=== PATIENT | female | born 1985 | race Caucasian/White ===

== ENCOUNTER → 2019-09-16 | Outpatient (CLI) | payer OTHER ==
[~2019-09-16] MED LIST: AZIT250 PO; Amoxicillin500 MG PO; Amoxicillin875 MG PO; BENZ100A PO; BUTASPCAF PO; CEPH250A PO; CEPH500 PO; CIPR500 PO; Excedrin Extra1 EACH PO; GENT.3OPSA OU; HYDACE5 PO; HYDCHL25 PO; HYDMOR2 PO; HYDROCHLOROTHIAZIDE; Hydrochlorothia50 MG PO; IBUP600; IBUP600 PO; IBUP800 PO; Inderal80 MG PO; KETO10 PO; Keflex500 MG PO; LABE100 PO; MULVITMINE PO; NAPR220 PO; NAPR500 PO; OXYACE5T PO; OXYC5 PO; PENVK500 PO; POTA8; PROM25 PO; PROP80ER PO; Percocet 5-3251 EACH PO; RXHYDACE PO; RXHYDMOR2 PO; RXPROM25 PO; SPIHYD; TAMS.4ER PO; Verotin-Gr Cap1 EACH PO; Zofran Odt4 MG PO; Zofran Odt4 MG SL
== END | disposition home or self-care (01) ==
LOC: LAB 18:55 → LAB SHORT 18:55
DX: R30.9 Painful micturition, unspecified (principal)
CPT/HCPCS: 87077; 87086; 87186

== ENCOUNTER 2023-01-30 01:42 | Emergency (ER) | payer OTHER ==
[~2023-01-30] VITALS: Ht 172.7 cm; Wt 83.0 kg
[2023-01-30 03:25] VITALS: BP 153/93
[2023-01-30] MEDS ORDERED: AMOCLA875 PO (03:56)
== END 2023-01-30 04:05 | disposition home or self-care (01) ==
LOC: ER 01:42
DX: K04.7 Periapical abscess without sinus (principal); Z79.899 Other long term (current) drug therapy; Z79.82 Long term (current) use of aspirin; G43.909 Migraine, unspecified, not intractable, without status migrainosus; I10 Essential (primary) hypertension; F17.200 Nicotine dependence, unspecified, uncomplicated
CPT/HCPCS: 99283; A9270